=== PATIENT | female | born 1945 ===

== ENCOUNTER 2018-02-02 07:10 | Day surgery (SDC) | payer OTHER ==
[~2018-02-02 07:10] MED LIST: AVAPRO150 MG PO; M.V.I. ADULT10 ML IV; OMEPRAZOLE20 M1 PO; XANAX0.25 MG PO
== END 2018-02-02 14:40 | disposition home or self-care (01) ==
LOC: CIR.AMB 07:10
DX: K64.8 Other hemorrhoids (principal)